=== PATIENT | female | born 1970 ===

== ENCOUNTER 2022-09-24 11:10 | Emergency (ER) | payer BC ==
[2022-09-24] MEDS ORDERED: Ketorolac 30 MG/ML SDV IM ONE (11:51)
[2022-09-24] MEDS ORDERED: Ketorolac 30 MG/ML SDV IVPUSH STA (12:04)
[2022-09-24 13:43] VITALS: BP 135/90; PULSE 84
== END 2022-09-24 12:40 | disposition home or self-care (01) ==
LOC: JD.ED 11:10
DX: M54.12 Radiculopathy, cervical region (principal); F07.81 Postconcussional syndrome; Z87.891 Personal history of nicotine dependence
CPT/HCPCS: 96374; 99283; J1885; 99284